=== PATIENT | male | born 1955 | race Caucasian/White ===

== ENCOUNTER 2016-12-08 11:03 | Emergency (ER) | payer BC ==
[2016-12-08 11:14] VITALS: BP 123/78
--- NOTE | 2016-12-08 11:24 | UC ---
Skin Complaint HPI - HPI Summary HPI Summary: 61M presents with left arm redness. He states the area of redness has been spreading. Over a week and a half ago he got stung by a bee. 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 He states that his reaction was some redness around the area that improved within a couple days. Over the past couple days the redness has spread. He denies any fever. He denies any drainage from the area. He states the area is itchy. He tried some anti-itch cream which helped. - History of Current Complaint Chief Complaint: UCSkin Time Seen by Provider: 12/08/16 11:15 Stated Complaint: RED ARM BEE STING - Allergy/Home Medications Allergies/Adverse Reactions: Allergies Allergy/AdvReac Type Severity Reaction Status Date / Time Sulfa Antibiotics Allergy Rash Verified 12/08/16 11:08 Home Medications: Home Medications Tamsulosin CAP* [Flomax CAP*] 0.4 mg PO DAILY 12/08/16 [History Confirmed ] Review of Systems Constitutional: Negative Skin: Rash Respiratory: Negative Cardiovascular: Negative All Other Systems Reviewed And Are Negative: Yes PMH/Surg Hx/FS Hx/Imm Hx Previously Healthy: Yes Endocrine History: Other Other Endocrine History: no DM Cardiovascular History: Other Other Cardiovascular History: no HTN - Surgical History Surgical History: None - Family History Known Family History: Positive: Cardiac Disease - Social History Alcohol Use: Weekly Substance Use Type: None Smoking Status (MU): Never Smoked Tobacco Physical Exam Triage Information Reviewed: Yes Appearance: Well-Appearing Vital Signs: Initial Vital Signs Temp 97.2 F 12/08/16 11:11 Pulse 67 12/08/16 11:11 Resp 15 12/08/16 11:11 BP 123/78 12/08/16 11:11 Pulse Ox 100 12/08/16 11:11 Vital Signs Reviewed: Yes ENT: Positive: Normal ENT inspection, Pharynx normal, Nasal drainage Respiratory: Positive: Lungs clear, Normal breath sounds Cardiovascular: Positive: RRR Musculoskeletal: Positive: Strength Intact - left elbow, ROM Intact - left elbow Skin: Positive: Other - erytematous rash with warmth to touch on anterior aspect of left forearm that extends to posterior aspect of elbow Course/Dx - Course Course Of Treatment: 61M presents with left arm redness. He states the area of redness has been spreading. Over a week and a half ago he got stung by a bee. 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 He states that his reaction was some redness around the area that improved within a couple days. Over the past couple days the redness has spread. He denies any fever. He denies any drainage from the area. He states the area is itchy. He tried some anti-itch cream which helped. on exam has erythematous rash that is warm to touch across left forearm. could be locial allergic reaction but due to time frame will treat as cellulitis. told take bendaryl at night for itchy. patient understands and agrees with plan. - Differential Diagnoses - Skin Complaint Differential Diagnoses: Cellulitis, Contact Dermatitis, Local Allergic Reaction - Diagnoses Provider Diagnoses: cellulitis of left arm Discharge - Discharge Plan Condition: Good Disposition: HOME Prescriptions: Cephalexin CAP* [Keflex CAP*] 500 mg PO QID #40 cap Patient Education Materials: Cellulitis (ED) Referrals: No Primary Care Phys,NOPCP [Medical Doctor] - Additional Instructions: Take Keflex 4 times a day for 10 days Follow up with primary within 5 days Return to ED if develop fever, area of redness spreads after two days on antibiotics, or any new or worsening symptoms
== END 2016-12-08 11:40 | disposition home or self-care (01) ==
LOC: UCEAST 11:03
DX: L03.114 Cellulitis of left upper limb (principal); Z88.2 Allergy status to sulfonamides
CPT/HCPCS: 99202; G0463